=== PATIENT | male | born 1990 | race Caucasian/White ===

== ENCOUNTER 2016-10-20 15:10 | Emergency (ER) | payer MEDICAID, OTHER ==
[~2016-10-20] VITALS: Ht 175.3 cm; Wt 100.0 kg
[2016-10-20] MEDS ORDERED: DEXAMETHASONE SOD PHOS 4 MG/ML 5 ML VIAL IM ONE (18:00)
[2016-10-20] MEDS ORDERED: LIDOCAINE HCL/PF 1% 2 ML VIAL IM ONE (18:00)
[2016-10-20] MEDS ORDERED: IBUPROFEN 800 MG TABLET PO ONE (18:00)
[2016-10-20] MEDS ORDERED: CefTRIAXone SODIUM 1 GM/VIAL IM ONE (18:00)
[2016-10-20 18:38] VITALS: BP 132/88
== END 2016-10-20 18:54 | disposition home or self-care (01) ==
LOC: EMS 15:10
DX: J02.0 Streptococcal pharyngitis (principal); H65.93 Unspecified nonsuppurative otitis media, bilateral; Z91.018 Allergy to other foods
CPT/HCPCS: 96374; 99284; J0696; J1100; J3490